=== PATIENT | female | born 1965 | race Two or more races ===

== ENCOUNTER 2018-08-11 17:38 | Inpatient (IN) | payer OTHER ==
[~2018-08-11] VITALS: Ht 144.8 cm; Wt 106.6 kg
[2018-08-11] MEDS ORDERED: CLONAZEPAM1 MG (18:25)
== END 2018-08-17 14:50 | disposition home or self-care (01) | DRG 189 ==
LOC: ER 17:38 → MEDJ 08-12 00:18 → MEDI 08-12 00:18 → MEDJ 08-12 01:08
PROC: 3E0F7GC Introduction of Other Therapeutic Substance into Respiratory Tract, Via Natural or Artificial Opening (ICD-10-PCS; principal; 2018-08-12)
PROC: B030ZZZ Magnetic Resonance Imaging (MRI) of Brain (ICD-10-PCS; 2018-08-12)
PROC: B246ZZZ Ultrasonography of Right and Left Heart (ICD-10-PCS; 2018-08-12)
PROC: 4A12X4Z Monitoring of Cardiac Electrical Activity, External Approach (ICD-10-PCS; 2018-08-12)
PROC: 4A033R1 Measurement of Arterial Saturation, Peripheral, Percutaneous Approach (ICD-10-PCS; 2018-08-16)
DX: J95.821 Acute postprocedural respiratory failure (principal); J45.41 Moderate persistent asthma with (acute) exacerbation; G93.49 Other encephalopathy; I10 Essential (primary) hypertension; E78.49 Other hyperlipidemia; E66.01 Morbid (severe) obesity due to excess calories; M17.11 Unilateral primary osteoarthritis, right knee; I27.29 Other secondary pulmonary hypertension; E09.65 Drug or chemical induced diabetes mellitus with hyperglycemia; T38.0X5A Adverse effect of glucocorticoids and synthetic analogues, initial encounter; R94.6 Abnormal results of thyroid function studies; R41.3 Other amnesia
CPT/HCPCS: 70551

== ENCOUNTER 2019-11-28 05:40 | Day surgery (SDC) | payer OTHER ==
[~2019-11-28 05:40] MED LIST: CLONAZEPAM1 MG
== END 2019-11-28 11:55 | disposition home or self-care (01) ==
LOC: AMB-ENDOS 05:40 → ADM 07:45 → AMB-ENDOS 11:55
DX: K29.50 Unspecified chronic gastritis without bleeding (principal); K44.9 Diaphragmatic hernia without obstruction or gangrene

== ENCOUNTER 2020-12-11 04:19 | Emergency (ER) | payer OTHER ==
[~2020-12-11] VITALS: Ht 144.8 cm; Wt 86.2 kg
[2020-12-11] MEDS ORDERED: SINGULAIR 5MG5 MG (04:34)
[2020-12-11] MEDS ORDERED: VITAMIN B COMP1 EAC1 (04:35)
[2020-12-11] MEDS ORDERED: CYMBALTA60 MG (05:06)
[2020-12-11] MEDS ORDERED: NEURONTIN300 MG (05:06)
[2020-12-11] MEDS ORDERED: LIPITOR20 MG (05:06)
[2020-12-11] MEDS ORDERED: BREO ELLIPTA 21 EACH (05:07)
[2020-12-19] MEDS ORDERED: AVAPRO150 MG PO (09:37)
[2020-12-19] MEDS ORDERED: MULTIPLE VITAM1 EAC2 PO (09:39)
[2020-12-19] MEDS ORDERED: HYDROXYZINE PAM25 MG PO (09:39)
== END 2020-12-11 09:42 | disposition home or self-care (01) ==
LOC: ER 04:19
DX: S62.621A Displaced fracture of middle phalanx of left index finger, initial encounter for closed fracture (principal); S62.522A Displaced fracture of distal phalanx of left thumb, initial encounter for closed fracture; S01.82XA Laceration with foreign body of other part of head, initial encounter; S61.221A Laceration with foreign body of left index finger without damage to nail, initial encounter; S80.02XA Contusion of left knee, initial encounter; S80.01XA Contusion of right knee, initial encounter; M54.2 Cervicalgia; R42 Dizziness and giddiness; W18.09XA Striking against other object with subsequent fall, initial encounter; Y93.89 Activity, other specified; Y92.230 Patient room in hospital as the place of occurrence of the external cause; Y99.8 Other external cause status

== ENCOUNTER 2020-12-19 12:12 | Emergency (ER) | payer OTHER ==
[~2020-12-19] VITALS: Ht 144.8 cm; Wt 81.6 kg
[~2020-12-19 12:12] MED LIST changes: +AVAPRO150 MG PO; +BREO ELLIPTA 21 EACH; +CYMBALTA60 MG; +HYDROXYZINE PAM25 MG PO; +LIPITOR20 MG; +MULTIPLE VITAM1 EAC2 PO; +NEURONTIN300 MG; +SINGULAIR 5MG5 MG; +VITAMIN B COMP1 EAC1
== END 2020-12-19 14:22 | disposition home or self-care (01) ==
LOC: ER 12:12
DX: Z48.02 Encounter for removal of sutures (principal)

== ENCOUNTER 2020-12-23 06:43 | Day surgery (SDC) | payer OTHER | END 2020-12-23 17:00 | disposition home or self-care (01) | LOC: CIR.AMB 06:43 | PROVIDERS: ATTEND Orthopaedic Surgery Hand Surgery | DX: S62.611A Displaced fracture of proximal phalanx of left index finger, initial encounter for closed fracture (principal); Z20.822 Contact with and (suspected) exposure to COVID-19 ==